=== PATIENT | male | born 1995 | race Caucasian/White ===

== ENCOUNTER → 2018-12-10 | Outpatient (CLI) | payer OTHER ==
[2018-12-10 13:38] LABS: Source, Urine Clean Catch
[2018-12-10 15:09] LABS: Bilirubin, Urine Neg (Neg); Blood, Urine Neg (Neg); Glucose Qualitative, Urine Neg (Neg); Ketones, Urine Neg (Neg); Leukocyte Esterase, Urine Neg (Neg); Nitrite, Urine Neg (Neg); Protein, Urine Neg (Neg); Urobilinogen, Urine 1+ (Normal)
[2018-12-10 15:23] LABS: Appearance, Urine Cloudy (Clear); Color, Urine Yellow (P-Yellow)
[2018-12-10 15:38] LABS: Amorphous Heavy ({null, 0-Heavy}); Bacteria Few /hpf; Red Blood Cells, Urine Not Seen /hpf (0-2)
[2018-12-10 15:39] LABS: Squamous Epithelial Cells Not Seen /hpf (Few); White Blood Cells, Urine 0-2 /hpf (0-5)
== END | disposition home or self-care (01) ==
LOC: LAB SHORT 13:37 → LAB 13:37
PROVIDERS: Internal Medicine
DX: N50.811 Right testicular pain (principal)
CPT/HCPCS: 81001; 87086